=== PATIENT | male | born 1990 | race Caucasian/White ===

== ENCOUNTER 2018-09-15 20:09 | Emergency (ER) | payer SELFPAY ==
[~2018-09-15] VITALS: Ht 167.6 cm; Wt 100.9 kg
[2018-09-15 20:11] VITALS: Ht 167.6 cm; Wt 100.9 kg
--- NOTE | 2018-09-15 20:37 | ERD ---
ER Documentation Chief Complaint Chief Complaint AP/PELVIC PAIN X'S 3 DAYS HPI Patient is a 28 years old male with no known past medical history presenting to the clinic for left-sided abdominal pain X 3 days. Patient reports pain started in the left upper quadrant and has slowly radiated to left testicle. Reports pain is worse with walking that goes away while sitting or lying down. Patient denies taking any OTC medication. Patient denies fever, chills, night sweats, abdominal distention, constipation, nausea, emesis, hematochezia, melena, dysuria, urinary urgency, bladder fullness. He admits to one female sexual partner. ROS All systems reviewed and are negative except as per history of present illness. Medications Home Meds Active Scripts Omeprazole* (Omeprazole*) 20 Mg Capsule., 20 MG PO BID, #20 Prov:GENO YATES PA-C 09/15/18 Allergies Allergies: Coded Allergies: No Known Allergy (Unverified , 09/15/18) Physical Exam Vitals Vital Signs Date Temp Pulse Resp B/P (MAP) Pulse Ox O2 O2 Flow FiO2 Time Delivery Rate 09/15/18 98.1 83 18 172/91 99 20:11 (118) Physical Exam Const: No acute distress Head: Atraumatic Eyes: Normal Conjunctiva Resp: Clear to auscultation bilaterally Cardio: Regular rate and rhythm, no murmurs Abd: Soft, non distended. Normal bowel sounds. Left upper quadrant and left lower quadrant tenderness with mild guarding. Negative Sharif sign, McBurney's point tenderness, Rovsing sign, rebound tenderness, coenzyme, Chin S[place] sign. Skin: No petechiae or rashes Back: No midline or flank tenderness. Negative CVAT. Neur: Awake and alert Psych: Normal Mood and Affect Male Genital Exam: Left testicular tenderness without edema, erythema, induration, mass. Negative Prehn's sign. Result Diagram: 09/15/18204209/15/182042 Results 24 hrs Laboratory Tests Test 09/15/18 20:43 White Blood Count 9.5 10^3/ul Red Blood Count 5.43 10^6/ul Hemoglobin 13.8 g/dl Hematocrit 42.3 % Mean Corpuscular Volume 77.9 fl Mean Corpuscular Hemoglobin 25.4 pg Mean Corpuscular Hemoglobin Concent 32.6 g/dl Red Cell Distribution Width 13.6 % Platelet Count 348 10^3/UL Mean Platelet Volume 9.6 fl Immature Granulocytes % 0.400 % Neutrophils % 50.5 % Lymphocytes % 35.5 % Monocytes % 7.3 % Eosinophils % 5.8 % Basophils % 0.5 % Nucleated Red Blood Cells % 0.0 /100WBC Immature Granulocytes # 0.040 10^3/ul Neutrophils # 4.8 10^3/ul Lymphocytes # 3.4 10^3/ul Monocytes # 0.7 10^3/ul Eosinophils # 0.6 10^3/ul Basophils # 0.1 10^3/ul Nucleated Red Blood Cells # 0.0 10^3/ul Urine Color YELLOW Urine Clarity CLEAR Urine pH 6.0 Urine Specific Eads 1.031 Urine Ketones NEGATIVE mg/dL Urine Nitrite NEGATIVE mg/dL Urine Bilirubin NEGATIVE mg/dL Urine Urobilinogen 2+ mg/dL Urine Leukocyte Esterase NEGATIVE Becki/ul Urine Hemoglobin NEGATIVE mg/dL Urine Glucose NEGATIVE mg/dL Urine Total Protein NEGATIVE mg/dl Sodium Level 144 mmol/L Potassium Level 3.9 mmol/L Chloride Level 107 mmol/L Carbon Dioxide Level 31 mmol/L Anion Gap 6 Blood Urea Nitrogen 21 mg/dl Creatinine 0.92 mg/dl Est Glomerular Filtrat Rate mL/min > 60 mL/min Glucose Level 106 mg/dl Calcium Level 9.2 mg/dl Total Bilirubin 0.3 mg/dl Direct Bilirubin 0.00 mg/dl Indirect Bilirubin 0.3 mg/dl Aspartate Amino Transf (AST/SGOT) 36 IU/L Alanine Aminotransferase (ALT/SGPT) 80 IU/L Alkaline Phosphatase 85 IU/L Total Protein 8.2 g/dl Albumin 4.2 g/dl Globulin 4.00 g/dl Albumin/Globulin Ratio 1.05 Lipase 64 U/L Current Medications Medications Dose Sig/Bari Start Time Status Last (Trade) Ordered Route PRN Stop Time Admin Dose Reason Admin Ibuprofen 800 mg ONCE ONCE 09/15/18 DC 09/15/18 (Motrin) PO 21:00 09/15/18 20:48 21:00 40 mg ONCE ONCE 09/15/18 DC 09/15/18 Pantoprazole PO 21:00 09/15/18 21:13 (Protonix 21:01 Tab) 650 mg ONCE ONCE 09/15/18 DC 09/15/18 Acetaminophen PO 21:00 09/15/18 21:13 (Tylenol 21:01 Tab) Procedures/MDM Patient was seen and evaluated for abdominal pain and left testicular pain. CBC, CMP, lipase, urinalysis are grossly unremarkable. Testicular ultrasound revealed Unremarkable testicular ultrasound. No evidence of torsion. No evidence of hernia. Patient was given Tylenol and Protonix p.o. in ED. low suspicion of appendicitis, colitis, cholecystitis. Patient is stable and ready for discharge. Follow-up with PCP. Patient was advised to get STI work-up by PCP. Departure Diagnosis: Primary Impression: Abdominal pain Abdominal location: left lower quadrant Qualified Codes: R10.32 - Left lower quadrant pain Additional Impression: Testicular pain, left Condition: Stable Patient Instructions: Abdominal Pain Referrals: [facility] Additional Instructions: Patient advised to return to the ED immediately for new or worsening symptoms. Patient advised to follow up with primary care provider in the next 24-48 hours. Patient verbalized understanding and agrees with treatment plan and course of action. If patient has no primary care they may follow up with [facility] [address] [place] [id number] or [facility] [id number] [place] [phone] or [facility] [address] [place] [address] GENO YATES PA-C Sep 15, 2018 20:37
[2018-09-15] MEDS ORDERED: IBUPROFEN 800 MG TAB PO ONE (21:00)
[2018-09-15] MEDS ORDERED: ACETAMINOPHEN 325 MG TAB PO ONE (21:00)
[2018-09-15] MEDS ORDERED: PANTOPRAZOLE (EC) 40 MG TAB PO ONE (21:00)
[2018-09-15] MEDS ORDERED: OMEP20CA16 PO (22:40)
[2018-09-15 23:17] VITALS: BP 144/82; PULSE 78; RESP 16
== END 2018-09-15 23:18 | disposition home or self-care (01) ==
LOC: FTE 20:09
DX: N50.812 Left testicular pain (principal)
CPT/HCPCS: 36415; 76870; 80053; 81003; 83690; 85025